=== PATIENT | female | born 1985 | race Caucasian/White ===

== ENCOUNTER 2019-01-07 17:22 | Emergency (ER) | payer OTHER ==
[~2019-01-07] VITALS: Ht 160 cm; Wt 49.9 kg
[2019-01-07 17:27] VITALS: BP 130/98
== END 2019-01-07 17:57 | disposition home or self-care (01) ==
LOC: ER 17:25
DX: J02.9 Acute pharyngitis, unspecified (principal); J45.909 Unspecified asthma, uncomplicated